=== PATIENT | female | born 1955 | race Caucasian/White ===

== ENCOUNTER → 2016-11-27 | Day surgery (SDC) | payer OTHER ==
[~2016-11-27] VITALS: Ht 157.5 cm; Wt 69.0 kg
[~2016-11-27] MED LIST: MULT-1018 PO; Sodium Chloride LOK Flush 10 mL Syringe IV PRN; VIT D PO; fentaNYL-PF 50 mCg/mL 2 mL Inj IVPUSH PRN
[2016-11-27 11:23] VITALS: BP 140/86; PULSE 64; RESP 14; O2SAT 100
[2016-11-27] MEDS: 0.9% Sodium Chloride 1,000 ML IV SCH ×2 (13:05→13:24)
[2016-11-27 13:33] VITALS: BP 121/63; PULSE 63; RESP 16; O2SAT 98
[2016-11-27 13:43] VITALS: BP 107/73; PULSE 56; RESP 16; O2SAT 98
[2016-11-27 13:51] VITALS: BP 118/69; PULSE 56; RESP 16; O2SAT 99
--- NOTE | 2016-11-27 13:55 | ENDO ---
[address] [address] ENDOSCOPY PROCEDURE PATIENT: KELLY GRIGGS : 1955 MR#: [id number] ADMIT: 11/27/2016 JOB ID: [id number] DATE: 11/27/2016 PROCEDURE: Colonoscopy. INDICATION: Rectal bleeding. Patient's ASA classification is II. Mallampati score is II. MEDICATIONS: Versed 4 mg, fentanyl 100 mcg. INSTRUMENT USED: PCF-H180AL. PREPARATION QUALITY: Was good. PROCEDURE DETAILS: After informed consent was obtained, the patient was brought into the GI suite, where she was placed on oxygen via nasal cannula and monitored with continuous pulse oximeter, telemetry, and blood pressure monitoring. A time-out was performed. Then, she was placed in a left lateral decubitus position. Medications were administered for sedation. Digital rectal exam was performed which was unremarkable. The colonoscope was then inserted into the rectum and advanced under direct visualization to the cecum, which was identified by the presence of the ileocecal valve and appendiceal orifice. Once the cecum was reached, the colonoscope was withdrawn back into the rectum. Mucosa and lumen were examined. In the rectum, retroflexion was performed. Following retroflexion, remaining air in the rectum was suctioned, and procedure was completed. FINDINGS: 1. In the descending colon, there was a diminutive polyp that was removed with cold biopsy forceps. 2. Retroflexed views in the rectum revealed small internal hemorrhoids. IMPRESSION: 1. Descending polyp. 2. Internal hemorrhoids. RECOMMENDATIONS: 1. Fiber rich diet. 2. A trial of Anusol HC suppositories if bleeding continues. 3. Follow up in GI clinic. COMPLICATIONS: None. ESTIMATED BLOOD LOSS: Less than 5 mL
--- NOTE | 2016-12-02 16:29 | PATH ---
SURGICAL PATHOLOGY Attending Physician:Seng Kaiser CASE STATUS: Signed Out PATIENT NAME: KELLY GRIGGS PID: [id number] : 1955 DATE COLLECTED:11/27/2016 00:00 SPECIMEN: Colon, Polyp CLINICAL HISTORY: 1). DESCENDING COLON POLYP FINAL DIAGNOSIS: Descending Colon Polyp, Biopsy: Tubular adenoma. ICD10: D12.4 GROSS DESCRIPTION: Received in formalin, labeled with the patient's name and "descending colon polyp" is one fragment of graves soft tissue measuring 0.3 x 0.1 x 0.1 cm. The fragment is totally submitted in one cassette. [id number]) ICD-9 CODES: CPT CODES: 1: 53905 Electronically Signed Out Matthew Reyes MD, Ph.D. [facility] Pathology [facility], [place] [address] Technical component performed at [facility], [address] [place] [address] Ave[address], [place], [address]
== END | disposition home or self-care (01) ==
LOC: END 00:31
PROVIDERS: ATTEND Internal Medicine Gastroenterology
DX: D12.4 Benign neoplasm of descending colon (principal); K62.5 Hemorrhage of anus and rectum; K64.8 Other hemorrhoids